=== PATIENT | female | born 1965 | race Caucasian/White ===

== ENCOUNTER 2020-06-17 12:05 | Outpatient (CLI) | payer OTHER ==
[2020-06-17 11:31] LABS: #Eosinphils 0.1 10x3/uL (0.0-0.5); #Monocytes 0.3 10x3/uL (0.0-1.1); #Neutrophils 6.6 10x3/uL (1.5-8.4); %Basophils 0.3 % (0.0-2.0); %Eosinophils 0.8 % (0.0-6.0); %Lymphocytes 22.7 % (18.0-47.0); %Monocytes 3.6 % (0.0-10.0); %Neutrophils 72.2 % (40.0-75.0); Hemoglobin 11.9 g/dL (12.0-15.5); Mean Corpuscular HGB CONC 31.4 g/dL (32.0-36.0); Mean Corpuscular Hemoglobin 26.5 pg (27.0-33.0); Mean Corpuscular Volume 84.4 fl (81.6-98.3); Mean Platelet Volume 11.8 fl (7.4-10.4); Platelet Count 264 10x3/uL (150-450); RBC Distribution Width 15.3 % (11.5-14.5); Red Blood Cell (RBC) Count 4.49 10x6/uL (3.90-5.03); White Blood Cell (WBC) Count 9.2 10x3/uL (3.5-10.5)
[2020-06-17 11:47] LABS: ALT (SGPT) 54 U/L (8-55); AST (SGOT) 57 U/L (5-34); Albumin 3.7 g/dL (3.5-5.0); Alkaline Phosphatase 245 U/L (40-110); Anion Gap 11 mmol/L (10-20); BUN (Urea Nitrogen) 12 mg/dL (9.8-20.1); Bilirubin, Total 0.6 mg/dL (0.2-1.2); Calc. Creatinine Clearance 0 mL/min (70-130); Calcium 8.3 mg/dL (7.8-10.44); Carbon Dioxide 29 mmol/L (22-29); Chloride 102 mmol/L (98-107); Glucose 194 mg/dL (70-105); Potassium 3.9 mmol/L (3.5-5.1); Protein, Total 7.7 g/dL (6.0-8.3); Sodium 138 mmol/L (136-145)
[2020-06-18 01:24] LABS: SARS-CoV-2 PCR by NAA Not Detected (NotDetected)
== END 2020-06-17 12:06 | disposition home or self-care (01) ==
LOC: LABBT 12:05
PROVIDERS: ATTEND Surgery
DX: Z01.818 Encounter for other preprocedural examination (principal); Z20.822 Contact with and (suspected) exposure to COVID-19; K43.2 Incisional hernia without obstruction or gangrene
CPT/HCPCS: 80053; 85025; 87635; 93005; 93010; U0003; U0005

== ENCOUNTER 2020-06-22 06:05 | Day surgery (SDC) | payer OTHER ==
[2020-06-21 11:08] VITALS: BMI 29.5
[2020-06-22] MEDS ORDERED: Midazolam HCl 2 mg/2 ml Vial ONE (06:40)
[2020-06-22] MEDS ORDERED: Fentanyl 100 MCG/2 ML VIAL ONE ×3 (06:40→09:11)
[2020-06-22] MEDS ORDERED: Lidocaine 2% w/Epinephrine 1:200K 20 ML VIAL ONE (06:51)
[2020-06-22] MEDS ORDERED: Bupivacaine 0.25% HCL 30 ML VIAL ONE (06:51)
[2020-06-22] MEDS ORDERED: Rocuronium Bromide 10 MG/ML (10ML VIAL) ONE (07:36)
[2020-06-22] MEDS ORDERED: Glycopyrrolate 0.2 MG/ML 5 ML SYRINGE ONE (07:36)
[2020-06-22] MEDS ORDERED: PROPOFOL 200 MG/20 ML VIAL ONE (07:36)
[2020-06-22] MEDS ORDERED: Ondansetron PF 4 MG/2 ML Vial ONE (07:36)
[2020-06-22] MEDS ORDERED: HYDROcodone/Acetaminophen 5/325 mg Tablet ONE (09:41)
== END 2020-06-22 10:30 | disposition home or self-care (01) ==
LOC: SDC 06:05
PROVIDERS: ATTEND Surgery
PROC: 0WUF0JZ Supplement Abdominal Wall with Synthetic Substitute, Open Approach (ICD-10-PCS; principal; 2020-06-22)
DX: K43.2 Incisional hernia without obstruction or gangrene (principal); Z79.01 Long term (current) use of anticoagulants; Z79.899 Other long term (current) drug therapy; Z88.1 Allergy status to other antibiotic agents; Z88.8 Allergy status to other drugs, medicaments and biological substances; Z95.0 Presence of cardiac pacemaker
CPT/HCPCS: C1781; J0690; J2250; J2405; J2704; J3010; S0020

== ENCOUNTER 2021-09-19 09:57 | Observation (INO) | payer OTHER ==
[2021-09-14 10:28] VITALS: BMI 28.9
[2021-09-19] MEDS ORDERED: Lidocaine 1% w/Epinephrine 1:100K 20 ML VIAL ONE (12:54)
[2021-09-19] MEDS ORDERED: Bupivacaine 0.25% HCL 30 ML VIAL ONE (12:54)
[2021-09-19] MEDS ORDERED: fentaNYL Citrate/PF 100 MCG/2 ML SYRINGE ONE (13:01)
[2021-09-19] MEDS ORDERED: CEFAZOLIN 2 GM VIAL ONE (13:07)
[2021-09-19] MEDS ORDERED: Sodium Chloride 0.9% 100 ML ONE (13:08)
[2021-09-19] MEDS ORDERED: PROPOFOL 200 MG/20 ML VIAL ONE (13:36)
[2021-09-19] MEDS ORDERED: Lidocaine 1% PF 5 ML VIAL ONE (13:36)
[2021-09-19] MEDS ORDERED: Rocuronium Bromide 10 MG/ML (10ML VIAL) ONE (13:36)
[2021-09-19] MEDS ORDERED: Glycopyrrolate 0.2 MG/ML 5 ML SYRINGE ONE (13:36)
[2021-09-19] MEDS ORDERED: Ondansetron PF 4 MG/2 ML Vial ONE (13:36)
[2021-09-19] MEDS ORDERED: Promethazine HCl 25 MG/ML VIAL IM PRN (14:26)
[2021-09-19] MEDS ORDERED: Morphine 2 MG/ML VIAL SLOW IVP PRN (14:26)
[2021-09-19] MEDS ORDERED: Ondansetron PF 4 MG/2 ML Vial IVP PRN (14:26)
[2021-09-19] MEDS ORDERED: hydrALAZINE 20 MG/ML VIAL SLOW IVP PRN (14:26)
[2021-09-19] MEDS ORDERED: HYDROcodone/Acetaminophen 10/325 mg Tablet PO PRN (14:26)
[2021-09-19] MEDS ORDERED: Dextrose 5% in Water 1,000 ML IV PRN (14:26)
[2021-09-19] MEDS ORDERED: Dextrose 50% Abboject 50 ML SYRINGE SLOW IVP PRN (14:26)
[2021-09-19] MEDS ORDERED: Fentanyl 100 MCG/2 ML VIAL ONE ×2 (14:35→14:55)
[2021-09-19] MEDS ORDERED: Ketorolac Tromethamine 30 MG/ML VIAL ONE (15:07)
[2021-09-19] MEDS: Morphine 4 MG/ML VIAL SLOW IVP PRN (16:14)
[2021-09-19] MEDS: Ketorolac Tromethamine 30 MG/ML VIAL IVP SCH (18:04)
[2021-09-19] MEDS: HYDROcodone/Acetaminophen 10/325 mg Tablet PO PRN ×2 (18:17→22:15)
[2021-09-19] MEDS: Sodium Chloride 0.9% 1,000 ML IV SCH (18:22)
[2021-09-19] MEDS ORDERED: Albuterol 200 PUFF (6.7GM INHALER) INH PRN (20:17)
[2021-09-19] MEDS ORDERED: Atorvastatin Calcium 40 MG TAB PO SCH (21:00)
[2021-09-19] MEDS ORDERED: Famotidine/PF 20 mg/2ml Vial SLOW IVP SCH (21:00)
[2021-09-19] MEDS ORDERED: Famotidine 20 MG TAB PO SCH (21:00)
[2021-09-20] MEDS: Ketorolac Tromethamine 30 MG/ML VIAL IVP SCH ×3 (00:02→12:45)
[2021-09-20] MEDS: Sodium Chloride 0.9% 1,000 ML IV SCH ×2 (01:28→12:43)
[2021-09-20] MEDS: HYDROcodone/Acetaminophen 10/325 mg Tablet PO PRN ×4 (03:11→16:55)
[2021-09-20 06:27] LABS: #Eosinphils 0.1 thou/uL (0.0-0.7); #Lymphocytes 1.9 thou/uL (1.20-3.40); #Monocytes 0.4 thou/uL (0.11-0.59); #Neutrophils 2.8 thou/uL (1.40-6.50); %Basophils 0.3 % (0.0-1.0); %Eosinophils 1.5 % (0.0-10.0); %Lymphocytes 36.4 % (21.0-51.0); %Monocytes 7.5 % (0.0-10.0); %Neutrophils 54.3 % (42.0-75.0); Hemoglobin 10.2 g/dL (12.0-16.0); Mean Corpuscular HGB CONC 31.1 g/dL (32.0-36.0); Mean Corpuscular Volume 86.9 fL (78.0-98.0); Mean Platelet Volume 9.6 fL (7.4-10.4); Platelet Count 156 thou/uL (130-400); RBC Distribution Width 15.1 % (11.5-14.5); Red Blood Cell (RBC) Count 3.77 mill/uL (4.20-5.40); White Blood Cell (WBC) Count 5.2 thou/uL (4.8-10.8)
[2021-09-20] MEDS: Morphine 4 MG/ML VIAL SLOW IVP PRN (06:43)
[2021-09-20] MEDS ORDERED: Ferrous Sulfate 325 MG TAB PO SCH (08:00)
[2021-09-20] MEDS ORDERED: Glimepiride 1 MG TAB PO SCH (08:00)
[2021-09-20] MEDS: Carvedilol 3.125 MG TAB PO SCH ×2 (08:56→17:20)
[2021-09-20] MEDS ORDERED: Prevnar 13-Val Conj/PF 0.5 ML SYRINGE IM ONE (09:00)
[2021-09-20] MEDS ORDERED: Enoxaparin Sodium 40 MG/0.4 ML SYRINGE SC SCH (09:00)
[2021-09-20] MEDS ORDERED: Lisinopril 20 MG TAB PO SCH (09:00)
[2021-09-20] MEDS ORDERED: Magnesium Oxide 400 MG TAB PO SCH (09:00)
[2021-09-20] MEDS ORDERED: Calcium Carbonate 600 MG TAB PO SCH (09:00)
[2021-09-20] MEDS ORDERED: Cyanocobalamin (Vitamin B-12) 1,000 MCG TAB PO SCH (09:00)
[2021-09-20] MEDS ORDERED: Potassium Chloride 20 MEQ TAB PO SCH (09:00)
[2021-09-20 11:44] VITALS: TEMP 97.8
[2021-09-20 12:46] VITALS: BP 131/83
[2021-09-20] MEDS: Rifaximin 550 MG TAB PO SCH ×2 (17:28→17:29)
== END 2021-09-20 17:10 | disposition home or self-care (01) ==
LOC: SDC 09:57 → SURG B 14:32
PROVIDERS: ADMIT Surgery; ATTEND Surgery
PROC: 0WQF0ZZ Repair Abdominal Wall, Open Approach (ICD-10-PCS; principal; 2021-09-19)
DX: K43.2 Incisional hernia without obstruction or gangrene (principal); Z79.01 Long term (current) use of anticoagulants; Z79.84 Long term (current) use of oral hypoglycemic drugs; Z79.899 Other long term (current) drug therapy; Z88.1 Allergy status to other antibiotic agents; Z88.8 Allergy status to other drugs, medicaments and biological substances; Z95.0 Presence of cardiac pacemaker
CPT/HCPCS: 36415; 36416; 82565; 85025; 96372; 96374; 96375; 96376; G0378; J0690; J1650; J1885; J2270; J2405; J2704; J2710; J3010; J3490; J7050; S0020

== ENCOUNTER 2022-05-16 08:31 | Outpatient (CLI) | payer OTHER ==
[2022-05-16] MEDS ORDERED: MD-Gastroview 120 ML BOT ONE (09:16)
== END 2022-05-16 08:32 | disposition home or self-care (01) ==
LOC: RAD 08:31
PROVIDERS: ATTEND Surgery
DX: K56.600 Partial intestinal obstruction, unspecified as to cause (principal)
CPT/HCPCS: 74250; Q9963

== ENCOUNTER 2022-08-30 15:40 | Outpatient (CLI) | payer OTHER ==
[2022-08-30 16:41] LABS: #Eosinphils 0.1 10x3/uL (0.0-0.5); #Monocytes 0.3 10x3/uL (0.0-1.1); #Neutrophils 2.4 10x3/uL (1.5-8.4); %Basophils 0.5 % (0.0-2.0); %Eosinophils 1.4 % (0.0-6.0); %Lymphocytes 38.1 % (18.0-47.0); %Neutrophils 52.8 % (40.0-75.0); Hemoglobin 11.6 g/dL (12.0-15.5); Mean Corpuscular HGB CONC 31.3 g/dL (32.0-36.0); Mean Corpuscular Hemoglobin 25.6 pg (27.0-33.0); Mean Corpuscular Volume 81.9 fl (81.6-98.3); Mean Platelet Volume 11.3 fl (7.4-10.4); Platelet Count 221 10x3/uL (150-450); RBC Distribution Width 15.7 % (11.5-14.5); Red Blood Cell (RBC) Count 4.53 10x6/uL (3.90-5.03); White Blood Cell (WBC) Count 4.4 10x3/uL (3.5-10.5)
[2022-08-30 17:07] LABS: ALT (SGPT) 38 U/L (8-55); AST (SGOT) 44 U/L (5-34); Albumin 3.7 g/dL (3.5-5.0); Alkaline Phosphatase 238 U/L (40-110); Anion Gap 14 mmol/L (10-20); BUN (Urea Nitrogen) 12 mg/dL (9.8-20.1); Calc. Creatinine Clearance 0 mL/min (70-130); Calcium 8.6 mg/dL (7.8-10.44); Carbon Dioxide 22 mmol/L (22-29); Chloride 107 mmol/L (98-107); Estimated GFR 47; Globulin 3.8 g/dL (2.4-3.5); Glucose 184 mg/dL (70-105); Potassium 4.4 mmol/L (3.5-5.1); Protein, Total 7.5 g/dL (6.0-8.3); Sodium 139 mmol/L (136-145)
== END 2022-08-30 15:41 | disposition home or self-care (01) ==
LOC: LABBT 15:40
PROVIDERS: ATTEND Surgery
DX: Z01.812 Encounter for preprocedural laboratory examination (principal); K43.2 Incisional hernia without obstruction or gangrene
CPT/HCPCS: 80053; 85025

== ENCOUNTER 2022-09-03 07:59 | Observation (INO) | payer OTHER ==
[2022-09-03 09:44] LABS: PTT 27.6 sec (22.9-36.1); Prothrombin Time 13.1 sec (12.0-14.7)
[2022-09-03] MEDS ORDERED: SUGAMMADEX SODIUM 200 MG/2 ML VIAL ONE (10:17)
[2022-09-03] MEDS ORDERED: fentaNYL PF 100 MCG/2 ML SYRINGE ONE (10:17)
[2022-09-03] MEDS ORDERED: Norepinephrine 4 MG/4 ML VIAL ONE (10:17)
[2022-09-03] MEDS ORDERED: Vasopressin 20 UNITS/ML VIAL ONE (10:17)
[2022-09-03] MEDS ORDERED: Bupivacaine/Epinephrine 0.25% 30 ML VIAL ONE (10:18)
[2022-09-03] MEDS ORDERED: Sodium Chloride 0.9% 100 ML ONE (10:29)
[2022-09-03] MEDS ORDERED: CEFAZOLIN 2 GM VIAL ONE (10:29)
[2022-09-03] MEDS ORDERED: NEOSTIGMINE 3 MG/3 ML SYR 3 MG/3 ML SYRINGE ONE (10:42)
[2022-09-03] MEDS ORDERED: PROPOFOL 200 MG/20 ML VIAL ONE (10:42)
[2022-09-03] MEDS ORDERED: GLYCOPYRROLATE/PF 0.2 MG/ML VIAL ONE (10:42)
[2022-09-03] MEDS ORDERED: PHENYLEPHRINE-NS 100 MCG/ML 10 ML SYRINGE ONE (10:42)
[2022-09-03] MEDS ORDERED: Dexamethasone 20 MG/5 ML VIAL ONE (10:42)
[2022-09-03] MEDS ORDERED: ePHEDrine Sulfate 50 MG/10 ML VIAL ONE (10:42)
[2022-09-03] MEDS ORDERED: Ondansetron PF 4 MG/2 ML Vial ONE (10:42)
[2022-09-03] MEDS ORDERED: Rocuronium Bromide 10 MG/ML (10ML VIAL) ONE (10:42)
[2022-09-03] MEDS ORDERED: Lidocaine 1% PF 5 ML VIAL ONE (10:42)
[2022-09-03] MEDS ORDERED: Dextrose 50% Abboject 50 ML SYRINGE SLOW IVP PRN (11:53)
[2022-09-03] MEDS ORDERED: Morphine 4 MG/ML VIAL SLOW IVP PRN (11:53)
[2022-09-03] MEDS ORDERED: Ondansetron PF 4 MG/2 ML Vial IVP PRN (11:53)
[2022-09-03] MEDS ORDERED: Dextrose 5% in Water 1,000 ML IV PRN (11:53)
[2022-09-03] MEDS ORDERED: Glucagon 1 MG/ML KIT IM PRN (11:53)
[2022-09-03] MEDS ORDERED: HYDROcodone/Acetaminophen 10/325 mg Tablet PO PRN (11:53)
[2022-09-03] MEDS ORDERED: Promethazine HCl 25 MG/ML VIAL IM PRN (11:53)
[2022-09-03] MEDS ORDERED: Ipratropium/Albuterol 3 ML NEB NEB PRN (11:53)
[2022-09-03] MEDS ORDERED: fentaNYL 50 mcg/mL 1 mL Vial ONE ×2 (12:11→12:40)
[2022-09-03] MEDS ORDERED: Promethazine HCl 25 MG/ML VIAL IM/IV PRN (12:30)
[2022-09-03] MEDS ORDERED: Ondansetron HCl/PF 4 MG/2 ML Vial IVP PRN (12:30)
[2022-09-03] MEDS ORDERED: Non-Formulary Medication 1 EACH PO PRN (12:30)
[2022-09-03] MEDS: Ketorolac Tromethamine 30 MG/ML VIAL IVP SCH ×2 (14:32→19:56)
[2022-09-03] MEDS: Sodium Chloride 0.9% 1,000 ML IV SCH ×2 (14:49→21:13)
[2022-09-03] MEDS: HYDROcodone/Acetaminophen 10/325 mg Tablet PO PRN ×2 (15:50→21:11)
[2022-09-03] MEDS: CEFAZOLIN 2 GM in Sodium Chloride 0.9% 100 ML IVPB SCH (17:18)
[2022-09-03] MEDS: Morphine 2 MG/ML VIAL SLOW IVP PRN ×2 (17:59→23:29)
[2022-09-03] MEDS ORDERED: Atorvastatin Calcium 40 MG TAB PO SCH (21:00)
[2022-09-03] MEDS: Potassium Chloride 20 MEQ TAB PO SCH (21:10)
[2022-09-03] MEDS: Carvedilol 3.125 MG TAB PO SCH (21:13)
[2022-09-03] MEDS: Famotidine 20 MG TAB PO SCH (21:16)
[2022-09-03] MEDS: Famotidine/PF 20 mg/2ml Vial SLOW IVP SCH (21:16)
[2022-09-03] MEDS ORDERED: Magnesium Oxide 400 MG TAB PO SCH (21:30)
[2022-09-03] MEDS ORDERED: Potassium Chloride 20 MEQ TAB PO SCH (21:30)
[2022-09-04] MEDS: Ketorolac Tromethamine 30 MG/ML VIAL IVP SCH ×3 (02:04→13:54)
[2022-09-04] MEDS: CEFAZOLIN 2 GM in Sodium Chloride 0.9% 100 ML IVPB SCH ×2 (02:05→09:56)
[2022-09-04] MEDS: HYDROcodone/Acetaminophen 10/325 mg Tablet PO PRN ×2 (05:43→14:20)
[2022-09-04] MEDS: Sodium Chloride 0.9% 1,000 ML IV SCH (05:44)
[2022-09-04 06:42] LABS: #Monocytes 0.4 thou/uL (0.11-0.59); #Neutrophils 4.9 thou/uL (1.40-6.50); %Basophils 0.1 % (0.0-1.0); %Eosinophils 0.1 % (0.0-10.0); %Lymphocytes 25.7 % (21.0-51.0); %Monocytes 5.1 % (0.0-10.0); %Neutrophils 68.7 % (42.0-75.0); Hemoglobin 10.5 g/dL (12.0-16.0); Mean Corpuscular Hemoglobin 26.6 pg (27.0-31.0); Mean Platelet Volume 12.3 fL (7.4-10.4); Platelet Count 177 10x3/uL (130-400); RBC Distribution Width 16.1 % (11.5-14.5); Red Blood Cell (RBC) Count 3.95 mill/uL (4.20-5.40); White Blood Cell (WBC) Count 7.1 10x3/uL (4.8-10.8)
[2022-09-04 07:08] LABS: Anion Gap 11 mmol/L (10-20); BUN (Urea Nitrogen) 11 mg/dL (9.8-20.1); Calc. Creatinine Clearance 0 mL/min (70-130); Calcium 8.1 mg/dL (7.8-10.44); Carbon Dioxide 24 mmol/L (22-29); Chloride 106 mmol/L (98-107); Estimated GFR 73; Glucose 252 mg/dL (70-105); Potassium 4.3 mmol/L (3.5-5.1); Sodium 137 mmol/L (136-145)
[2022-09-04] MEDS ORDERED: Glimepiride 1 MG TAB PO SCH (08:00)
[2022-09-04] MEDS ORDERED: Magnesium Oxide 400 MG TAB PO SCH (09:00)
[2022-09-04] MEDS ORDERED: Prenatal Vitamin 1 TAB PO SCH (09:00)
[2022-09-04] MEDS ORDERED: Calcium Carbonate 600 MG TAB PO SCH (09:00)
[2022-09-04] MEDS ORDERED: Cholecalciferol 1,000 UNITS (25 MCG) TAB PO SCH (09:00)
[2022-09-04] MEDS: Carvedilol 3.125 MG TAB PO SCH (09:39)
[2022-09-04] MEDS: Lisinopril 20 MG TAB PO SCH ×2 (09:40→14:06)
[2022-09-04] MEDS: Famotidine 20 MG TAB PO SCH (09:41)
[2022-09-04] MEDS: Potassium Chloride 20 MEQ TAB PO SCH (09:41)
[2022-09-04] MEDS: Famotidine/PF 20 mg/2ml Vial SLOW IVP SCH (09:41)
[2022-09-04 14:05] VITALS: BP 144/88
[2022-09-04 14:14] VITALS: TEMP 97.6
== END 2022-09-04 15:00 | disposition home or self-care (01) ==
LOC: SDC 07:59 → SJJU 12:27
PROVIDERS: ADMIT Surgery; ATTEND Surgery
PROC: 0WUF0JZ Supplement Abdominal Wall with Synthetic Substitute, Open Approach (ICD-10-PCS; principal; 2022-09-04)
DX: K43.9 Ventral hernia without obstruction or gangrene (principal); K43.2 Incisional hernia without obstruction or gangrene; E11.9 Type 2 diabetes mellitus without complications; I25.10 Atherosclerotic heart disease of native coronary artery without angina pectoris; T78.40XA Allergy, unspecified, initial encounter; I63.9 Cerebral infarction, unspecified; I47.1 Supraventricular tachycardia; R00.1 Bradycardia, unspecified; I65.29 Occlusion and stenosis of unspecified carotid artery; I83.893 Varicose veins of bilateral lower extremities with other complications; I35.1 Nonrheumatic aortic (valve) insufficiency; D68.61 Antiphospholipid syndrome; E83.42 Hypomagnesemia; G47.33 Obstructive sleep apnea (adult) (pediatric); I11.0 Hypertensive heart disease with heart failure; R53.83 Other fatigue; E04.1 Nontoxic single thyroid nodule; D64.9 Anemia, unspecified; R22.2 Localized swelling, mass and lump, trunk; K44.9 Diaphragmatic hernia without obstruction or gangrene; I52 Other heart disorders in diseases classified elsewhere; E87.6 Hypokalemia; I50.9 Heart failure, unspecified; Z95.0 Presence of cardiac pacemaker; Z79.899 Other long term (current) drug therapy
CPT/HCPCS: 36415; 80048; 85025; 85610; 85730; 96374; 96375; 96376; C1781; C1889; G0378; J1100; J1885; J2272; J2405; J2704; J3010; J3490; J7050